=== PATIENT | female | born 1965 | race Caucasian/White ===

== ENCOUNTER 2019-05-09 09:12 | Day surgery (SDC) | payer BC ==
[~2019-05-09 09:12] MED LIST: Lactated Ringers 1,000 ML IV SCH; Sodium Chloride 0.9% 10 ML Syringe FLUSH PRN
[2019-05-09] MEDS ORDERED: Propofol 200 MG/20 ML SDV ONE ×2 (12:39→12:48)
[2019-05-09] MEDS ORDERED: fentaNYL 100 MCG/2 ML SDV ONE (12:39)
--- NOTE | 2019-05-09 13:44 | OR ---
PREOPERATIVE DIAGNOSIS: Diarrhea with blood in stool. POSTOPERATIVE DIAGNOSIS: Pancolonic colitis, probable ulcerative colitis. PROCEDURE PROPOSED: Total flexible colonoscopy. PROCEDURE DONE: Total flexible colonoscopy with multiple random colon biopsies and terminal ileal biopsies. INDICATION: This is a 54-year-old female with a history of some diarrhea and blood in her stools that has developed over the last month. She was referred for colonoscopic exam. TECHNIQUE: The patient was brought to the endoscopy suite, placed in left lateral decubitus position. She was sedated per [employer] and a flexible video colonoscope was then passed transanally and under visualization advanced to the cecum. Examination revealed a pancolonic severe colitis without any normal intervals. The rectum was involved. Multiple random biopsies were taken from all levels of the colon. I was able to intubate the terminal ileum, which appeared normal. I did about 4 biopsies in the terminal ileum to confirm that. Had a very beefy red appearance throughout the colon. No true geo ulcerations were noted. Was very friable and definitely bled easily with the biopsies. She tolerated the procedure well, and the scope was then withdrawn. FINAL IMPRESSION: 1. Pancolonic colitis, biopsies pending. 2. Normal ileum. PLAN: I have recommended she follow up with her family physician next week for pathology reports and further recommendations of treatment going forward. SCM: 05/09/2019 13:17:51 MODL: 05/09/2019 13:30:17 /[id number]
--- NOTE | 2019-05-14 11:01 | LETTER ---
05/14/2019 Ketty Navarro RE: KETTY NAVARRO : 1965 Dear Ketty: The biopsies taken from your colon revealed a moderately active colitis without any worrisome changes within the cells. The biopsies taken from your small intestine were normal. I feel that you need to follow up with your family physician for any further recommended treatment or evaluation for this problem. Respectfully,
== END 2019-05-09 14:35 | disposition home or self-care (01) ==
LOC: VM.SDS 09:12
PROVIDERS: ATTEND Surgery
DX: K52.9 Noninfective gastroenteritis and colitis, unspecified (principal); K62.89 Other specified diseases of anus and rectum; Z87.891 Personal history of nicotine dependence; Z79.899 Other long term (current) drug therapy
CPT/HCPCS: 45380; J2704; J3010; J7120